=== PATIENT | female | born 1975 | race Two or more races ===

== ENCOUNTER 2020-03-20 09:58 | Emergency (ER) | payer MEDICAID, OTHER ==
[~2020-03-20] VITALS: Ht 157.5 cm; Wt 72.6 kg
[2020-03-20] MEDS ORDERED: SODIUM CHLORIDE 0.9% 1,000 ML IV ONE ×2 (10:12)
[2020-03-20] MEDS ORDERED: LORazepam 2MG/ML-1ML VIAL IV ONE (10:15)
[2020-03-20] MEDS ORDERED: DIAZ10TA PO (10:16)
[2020-03-20 10:25] VITALS: BP 168/80
[2020-03-20 10:27] LABS: Basophils # (auto) 0 10 ^3/uL (0-0.2); Basophils % (auto) 0.6 % (0.0-2.0); Eosinophils # (auto) 0.1 10 ^3/uL (0-0.8); Eosinophils % (auto) 1.5 % (0.0-7.0); Hematocrit 45.5 % (36.0-46.0); Hemoglobin 15.5 g/dL (12.2-16.2); Lymphocytes # (auto) 2.7 10 ^3/uL (0.4-5.4); Lymphocytes % (auto) 39.2 % (10.0-50.0); Mean Corpuscular Hemoglobin 32.4 pg (28.0-32.0); Mean Corpuscular Hgb Conc. 34.1 g/dL (32.0-36.0); Monocytes # (auto) 0.4 10 ^3/uL (0-1.3); Monocytes % (auto) 6.3 % (0.0-12.0); Neutrophils # (auto) 3.6 10 ^3/uL (1.6-8.6); Neutrophils % (auto) 52.4 % (37.0-80.0); Platelet Count (auto) 202 10^3/uL (140-450); Red Blood Cells 4.79 10^6/uL (4.0-5.20); Red Cell Distribution Width 13.4 % (11.8-14.3); White Blood Cell 6.8 10^3/uL (4.4-10.8)
[2020-03-20 10:44] LABS: Anion Gap 5 (5-15); Blood Urea Nitrogen 11 mg/dL (7-18); Calcium 8.8 mg/dL (8.5-10.1); Carbon Dioxide 24 mmol/L (21-32); Chloride 111 mmol/L (98-107); Glucose 90 mg/dL (74-106); Potassium 3.4 mmol/L (3.5-5.1); Sodium 140 mmol/L (136-145)
[2020-03-20 10:51] LABS: Alanine Aminotransferase 22 U/L (13-56); Alkaline Phosphatase 57 U/L (45-117); Aspartate Aminotransferase 14 U/L (15-37); BUN/Creatinine Ratio 14.5; Bilirubin, Total 0.3 mg/dL (0.2-1.0); GFR African American 105 mL/min; GFR Non-African American 87 mL/min; Total Protein 7.4 g/dL (6.4-8.2)
[2020-03-20 12:34] LABS: Urine Bacteria FEW /hpf (None Seen); Urine Blood Negative /uL (Negative); Urine Specific Gravity 1.006 (1.001-1.035); Urine WBC 1 /hpf (0 - 5)
== END 2020-03-20 12:57 | disposition home or self-care (01) ==
LOC: ER 09:58 → EDBD 09:58 → ER 12:57
DX: R56.9 Unspecified convulsions (principal); F41.9 Anxiety disorder, unspecified; E86.0 Dehydration; F17.210 Nicotine dependence, cigarettes, uncomplicated
CPT/HCPCS: 36415; 70450; 80053; 81001; 84484; 85025; 96361; 96374; 99284; J2060; J7030

== ENCOUNTER 2023-12-21 22:36 | Emergency (ER) | payer MEDICAID, OTHER ==
[~2023-12-21] VITALS: Ht 165.1 cm; Wt 75.0 kg
[~2023-12-21 22:36] MED LIST: DIAZ10TA66 PO
[2023-12-21 22:42] VITALS: BP 154/74; PULSE 80; RESP 18; TEMP 98.3
[2023-12-21] MEDS: KETOROLAC TROMETH 60MG/2ML VIAL IM ONE (23:22)
[2023-12-21 23:52] VITALS: O2SAT 98
[2023-12-22] MEDS: DULoxetine HCL 30 MG CAP PO ONE (00:16)
== END 2023-12-22 00:24 | disposition left against medical advice (07) ==
LOC: ER 22:36 → EDBD 22:36 → ER 12-22 00:24
DX: M79.7 Fibromyalgia (principal); M54.50 Low back pain, unspecified; I10 Essential (primary) hypertension; F17.210 Nicotine dependence, cigarettes, uncomplicated; Z88.0 Allergy status to penicillin; Z88.6 Allergy status to analgesic agent
CPT/HCPCS: 93005; 96372; 99283; J1885